=== PATIENT | male | born 2000 | race Caucasian/White ===

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

== ENCOUNTER 2023-02-18 22:18 | Emergency (ER) | payer BC ==
[~2023-02-18] VITALS: Ht 180.3 cm; Wt 86.2 kg
[~2023-02-18 22:18] MED LIST changes: -cefTRIAXone 1 GM/NS 50 ML IVPB IV NR
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
[2023-02-19 00:36] VITALS: BP 113/71
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
--- NOTE | 2023-02-19 07:29 | Diagnostic Imaging Report ---
Indication: Chest pain. Findings: Lungs clear. No failure, effusion or pneumothorax. Impression: Normal frontal chest. Dictated by: Dictated on workstation # [id number]
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
== END 2023-02-19 00:36 | disposition home or self-care (01) ==
LOC: EDUNIT# 22:18 → ER 22:20
DX: S06.0X0A Concussion without loss of consciousness, initial encounter (principal); S16.1XXA Strain of muscle, fascia and tendon at neck level, initial encounter; S80.11XA Contusion of right lower leg, initial encounter; F17.290 Nicotine dependence, other tobacco product, uncomplicated; Z28.310 Unvaccinated for COVID-19; V86.55XA Driver of 3- or 4- wheeled all-terrain vehicle (ATV) injured in nontraffic accident, initial encounter; Y92.410 Unspecified street and highway as the place of occurrence of the external cause
CPT/HCPCS: 70450; 71045; 72125; 73590

== ENCOUNTER 2023-04-10 23:13 | Emergency (ER) | payer BC ==
[~2023-04-10] VITALS: Ht 180.3 cm; Wt 88.4 kg
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
[2023-04-11] MEDS ORDERED: NAPR500T8 PO (00:15)
[2023-04-11] MEDS ORDERED: NAPROXEN 250 MG (NAPROSYN) TABLET PO ONE (00:15)
[2023-04-11] MEDS ORDERED: AUGMENTIN 875 MG TAB (AMOXICILLIN/CLAVULANATE) PO SCH (00:15)
[2023-04-11] MEDS ORDERED: AMOX1TAB12 PO (00:15)
[2023-04-11 00:25] VITALS: BP 136/70
== END 2023-04-11 00:25 | disposition home or self-care (01) ==
LOC: EDUNIT# 23:13 → ER 23:16
DX: H66.93 Otitis media, unspecified, bilateral (principal); J02.9 Acute pharyngitis, unspecified; F17.290 Nicotine dependence, other tobacco product, uncomplicated; Z28.310 Unvaccinated for COVID-19; Z20.822 Contact with and (suspected) exposure to COVID-19
CPT/HCPCS: 87430; 87636; 99285